=== PATIENT | male | born 1955 | race Caucasian/White ===

== ENCOUNTER 2017-02-12 14:56 | Day surgery (SDC) | payer OTHER ==
[~2017-02-12] VITALS: Ht 167.6 cm; Wt 90.4 kg
[2017-02-12 15:36] VITALS: Ht 167.6 cm; Wt 90.4 kg
[2017-02-12] MEDS ORDERED: METO-319 PO (15:53)
[2017-02-12] MEDS ORDERED: CLON-412 PO (15:53)
[2017-02-12] MEDS ORDERED: SPIR100T31 PO (15:53)
[2017-02-12] MEDS ORDERED: LACT10SO5 PO (15:53)
[2017-02-12] MEDS ORDERED: HYDR4TAB51 PO (15:53)
[2017-02-12] MEDS ORDERED: FURO40TA4 PO (15:53)
[2017-02-12] MEDS ORDERED: RIFA550T4 PO (15:53)
[2017-02-12] MEDS ORDERED: LANS30CA PO (15:53)
[2017-02-12] MEDS ORDERED: BACL20TA PO (15:53)
[2017-02-12 16:15] VITALS: BP 118/57; PULSE 57; RESP 12
[2017-02-12] MEDS ORDERED: PROPOFOL 60 ML ONE (16:33)
[2017-02-12] MEDS ORDERED: LIDOCAINE 100 MG SYRINGE ONE (16:34)
--- NOTE | 2017-02-12 17:04 | OPPN ---
Date/Time of Note Date/Time of Note DATE: 02/12/17 TIME: 16:59 Proc Note GI Procedure Date 02/12/17 Indication: other (Surveillance esophageal varices) Pre-procedure Diagnosis Surveillance esophageal varices Post-procedure Diagnosis Impression: Grade I/IV esophageal varices. No stigmata. No intervention Mild distal esophagitis. Irregular e.g. junction. 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 No biopsies obtained due to presence of varices Moderate gastritis versus portal hypertensive gastropathy. Rule out H. pylori infection. Biopsies obtained Otherwise normal EGD Plan: PPI therapy Surveillance EGD in 1 year Follow-up as previously scheduled . Procedure Performed: Endoscopy (With biopsies) Surgeon DOLLY MIMS MD See signature line Integrated Pest Management Technician none Anesthesia Type: MAC Anesthesiologist: ROSHAN WADSWORTH Tourniquet Time none EBL none Transfusion required none Biopsy 1: Gastric antrum Grafts/Implants none Tubes/Drains none Complication(s) none Disposition: home Procedure Description After informed consent, with the patient/relatives understanding the procedure, its indications, potential risks and complications, including but not limited to : allergic reaction, bleeding, perforation or infection, and after all pertinent questions were answered to the patients satisfaction, the patient/ relatives signed witnessed informed consent. Following this, premedication was administered slowly IV push under careful cardiovascular and respiratory monitoring with pulse oximetry, automatic blood pressure, and controller instructor. Once the sedative effect was achieved the patient was place in the left lateral decubitus, the panendoscope was introduced and advanced under visual control. Careful examination of the upper gastrointestinal tract, both on insertion as well as withdrawal of the instrument disclosing the following findings: ESOPHAGUS: the mucosa of the entire esophagus was carefully examined and showed the following findings: There are grade I/IV esophageal varices. No intervention required. There is irregularity of the e.g. junction raising the possibility of Fu's esophagus. Unfortunately no biopsies could be obtained due to the presence of esophageal varices. There is mild erythema and edema of the mucosa of the distal esophagus. Otherwise the mucosa appears within normal limits. There is no evidence of neoplasm, or stricture. No Hiatal Hernia identified. STOMACH: Upon entrance to the stomach air was insufflated, the gastric grimm distended normally. The mucosa of the fundus, body and antrum of the stomach was carefully examined both head-on and on retroflexion, and showed the following findings: There is moderate erythema and edema of the mucosa of the body and antrum the stomach. Biopsies were obtained to rule out H. pylori infection versus portal hypertensive gastropathy. Otherwise the mucosa appears within normal limits with no abnormalities. There is no evidence of ulcers or neoplasm. PYLORUS: The pylorus was carefully examined and showed the following findings: the pylorus appears patent and within normal limits, with no evidence of gastric outlet obstruction. DUODENUM: The duodenal mucosa was carefully examined in the duodenal bulb as well as the second portion of the duodenum and showed the following findings: the mucosa appears unremarkable with no evidence of duodenitis, ulcer or neoplasm. Copies To: CC: DOLLY MIMS MD, MORDO MD Feb 12, 2017 17:04
--- NOTE | 2017-02-12 17:06 | OPPN ---
Date/Time of Note Date/Time of Note DATE: 02/12/17 TIME: 17:04 Proc Note GI Procedure Date 02/12/17 Indication: other (CRC screening) Pre-procedure Diagnosis CRC screening Post-procedure Diagnosis Impression: Diverticulosis left side of the colon. Otherwise normal colonic mucosa to cecum. Moderate-sized internal hemorrhoids. Plan: Follow up as scheduled] High fiber diet Annual hemoccult stool testing [Screening colonoscopy in 10 years] . Procedure Performed: Colonoscopy Surgeon DOLLY MIMS MD See signature line Entry Engineer none Anesthesia Type: MAC Anesthesiologist: ROSHAN WADSWORTH Tourniquet Time none EBL none Transfusion required none Biopsy 1: None Grafts/Implants none Tubes/Drains none Complication(s) none Disposition: home Procedure Description After informed consent, with the patient/relatives understanding the procedure, its indications and potential risks and complications, including but not limited to: Allergic reaction, bleeding, perforation, infection, and after all pertinent questions were answered to the patient's satisfaction, the patient/ relatives signed the witnessed informed consent. Following this, premedication was administered slowly IV push under careful cardiovascular and respiratory monitoring with pulse OXIMETRY, automatic blood pressure, and cottonseed meat presser. Once the sedative effect was achieved, the patient was placed in the left lateral decubitus position, digital rectal examination was performed. The colonoscope was then introduced and advanced under visual control throughout all segments of the colon including: the rectum, sigmoid, descending colon, splenic flexure, transverse colon, hepatic flexure, ascending colon and finally reaching the cecum which was clearly identified by transillumination, finger indentation and the ileocecal valve. Careful examination of the mucosa of the lower gastrointestinal tract both on insertion as well as withdrawal of the instrument disclosed the following findings: PREPARATION QUALITY: [Adequate], RECTAL EXAM: The anorectal area was visualized examined and digital rectal examination performed with the following findings: No evidence of perirectal disease, no masses. COLONIC MUCOSA: The mucosa of all segments of the colon was carefully examined and showed the following findings: There is occasional diverticula left side of the colon. Moderate-sized internal hemorrhoids are present. Otherwise the examined mucosa appears within normal limits. There is no evidence of inflammatory changes, polyps or neoplasms , vascular malformation, or any other abnormality. The instrument was then withdrawn, the patient tolerated the procedure well and was transferred out of the Endoscopy Suite awake and in good condition to continue recovery under observation. Copies To: CC: DOLLY MIMS MD, MORDO MD Feb 12, 2017 17:06
[2017-02-12 17:10] VITALS: BP 109/56; PULSE 51; RESP 16
[2017-02-12 17:35] VITALS: BP 112/56; PULSE 54; RESP 18
== END 2017-02-12 18:15 | disposition home or self-care (01) ==
LOC: GIL 14:56
PROVIDERS: ATTEND Internal Medicine Gastroenterology
DX: Z12.11 Encounter for screening for malignant neoplasm of colon (principal); K57.90 Diverticulosis of intestine, part unspecified, without perforation or abscess without bleeding; K64.8 Other hemorrhoids; I85.00 Esophageal varices without bleeding; K20.9 Esophagitis, unspecified; I10 Essential (primary) hypertension
CPT/HCPCS: 43239; 45378; 88305; J2001; Z7610

== ENCOUNTER 2018-01-07 12:23 | Day surgery (SDC) | END 2018-01-07 16:17 | disposition home or self-care (01) ==

== ENCOUNTER 2018-08-05 14:32 | Day surgery (SDC) | payer BC, OTHER ==
[~2018-08-05] VITALS: Ht 165.1 cm; Wt 94.4 kg
[~2018-08-05 14:32] MED LIST: BACL20TA PO; CLON-412 PO; FURO40TA4 PO; HYDR4TAB51 PO; LACT10SO5 PO; LANS30CA PO; METO-319 PO; RIFA550T4 PO; SPIR100T4 PO
[2018-08-05 15:28] VITALS: Ht 165.1 cm; Wt 94.4 kg
[2018-08-05 16:09] VITALS: BP 146/67; PULSE 65; RESP 16
--- NOTE | 2018-08-05 17:05 | PREAC ---
Date/Time of Note Date/Time of Note DATE: 08/05/18 TIME: 17:02 Anesthesia Eval and Record Evaluation Time Pre-Procedure Interview DATE: 08/05/18 TIME: 17:02 Age 63 Sex male NPO: 8 hrs Preoperative diagnosis Esophageal varices Planned procedure EGD Past Medical History Past Medical History: Includes Cardio: HTN, Dyslipidemia Hepatic: Alcohol abuse, Hepatitis, Cirrhosis GI: Morbid obesity Surgery & Anesthesia Issues No known issue Meds Anticoagulation: No Beta Nhi within 24 hr: Yes Reported Medications Clonazepam* (Klonopin*) 1 Mg Tablet, 1 MG PO DAILY, TAB 02/12/17 Baclofen* (Baclofen*) 20 Mg Tablet, 20 MG PO Q8 PRN for RELAX, TAB 02/12/17 Hydromorphone Hcl* (Dilaudid*) 4 Mg Tablet, 4 MG PO Q6H PRN for PAIN, TAB 02/12/17 Rifaximin* (Xifaxan*) 550 Mg Tablet, 550 MG PO BID, TAB 02/12/17 Lactulose* (Lactulose*) 10 Gm/15 Ml Solution, 10 GM PO Q8, ML 02/12/17 Metoprolol Succinate* (Toprol XL*) 50 Mg Tab.er.24h, 50 MG PO DAILY, #30 TAB 02/12/17 Lansoprazole* (Lansoprazole*) 30 Mg Capsule.dr, 30 MG PO DAILY, CAP 02/12/17 Spironolactone* (Spironolactone*) 100 Mg Tablet, 100 MG PO DAILY, TAB 02/12/17 Furosemide* (Furosemide*) 40 Mg Tablet, 40 MG PO DAILY, TAB 02/12/17 Meds reviewed: Yes Allergies Coded Allergies: Penicillins (Verified Allergy, Intermediate, 01/07/18) RASH tetracycline (Verified Allergy, Intermediate, 01/07/18) RAISED RED AREAS Allergies Reviewed: Yes Labs/Studies Labs Reviewed: Reviewed by anesthesiologist test: N/A Studies: ECG Pre-procedure Exam Last vitals Vital Signs Date Temp Pulse Resp B/P (MAP) Pulse Ox O2 O2 Flow FiO2 Time Delivery Rate 08/05/18 97.6 65 16 146/67 95 Room Air 16:09 (93) Airway: Adequate mouth opening, Adequate thyromental dist Mallampati: Mallampati III Teeth: Normal Lung: Normal Heart: Normal ASA Physical Status ASA physical status: 3 Emergency: E Planned Anesthetic General/MAC: MAC Planned Pain Management Parenteral pain med Pre-operative Attestations Prior to commencing anesthesia and surgery, the patient was re-evaluated, there was verification of: *The patient's identity *The results of appropriate recent lab work and preoperative vital signs *The above evaluation not changing prior to induction *Anesthetic plan, risk benefits, alternative and complications discussed with patient/family; questions answered; patient/family understands, accepts and wishes to proceed. NICK ANTHONY MD Aug 05, 2018 17:05
[2018-08-05] MEDS ORDERED: LIDOCAINE 2% (SDV) 5 ML INJ ONE (17:06)
[2018-08-05] MEDS ORDERED: PROPOFOL 40 ML ONE (17:06)
--- NOTE | 2018-08-05 17:22 | PAC ---
Date/Time of Note Date/Time of Note DATE: 08/05/18 TIME: 17:21 Post-Anesthesia Notes Post-Anesthesia Note Last documented vital signs Vital Signs Date Temp Pulse Resp B/P (MAP) Pulse Ox O2 O2 Flow FiO2 Time Delivery Rate 08/05/18 97.6 65 16 146/67 95 Room Air 16:09 (93) Activity: WNL Respiratory function: WNL Cardiovascular function: WNL Mental status: Baseline Pain reasonably controlled: Yes Hydration appropriate: Yes Nausea/Vomiting absent: Yes Comments BP:122/67, P:78, Spo2:100%, T:98,8 NICK ANTHONY MD Aug 05, 2018 17:22
== END 2018-08-05 18:23 | disposition home or self-care (01) ==
LOC: GIL 14:32
PROVIDERS: ATTEND Internal Medicine Gastroenterology
DX: I85.00 Esophageal varices without bleeding (principal); I10 Essential (primary) hypertension; E78.5 Hyperlipidemia, unspecified
CPT/HCPCS: 43239; 88305; Z7610; 88312